=== PATIENT | male | born 1945 | race Caucasian/White ===

== ENCOUNTER 2025-07-17 07:01 | Outpatient (OUT) | payer MEDICARE, SELFPAY ==
--- OUTSIDE RECORDS SUMMARY | 2025-07-16 09:30 | XMS_ITS ---
Author Organization [facility] in [place] Address [address] [place] [address] Care Team Providers Care Supervisor Slitting And Shipping Name Role Phone Burak Rosenthal Primary Care Provider Allergies No Known Allergies Results Component Value Reference Range Notes HEMOGLOBIN A1C - IN OFFICE Reviewed date:07/16/2025 02:32:13 PM Interpretation:7.7 Performing Lab: Notes/Report: 7.7 HEMOGLOBIN A1C - IN OFFICE 7.7 4.4 - 6.4 REASON FOR VISIT swollen right leg, MWV Medications Medication SIG (Take, Route, Frequency, Duration) Notes Start Date End Date Status Multivitamin otcActiveTamsulosin HCl 0.4 MG1 capsule Orally Once a dayActiveMounjaro 10 MG/0.5ML 10 mg Subcutaneous qweek 12 pens 5ActivemetFORMIN HCl 1000 MG1 tablet with a meal Orally bidActive Jardiance 25 MG1 tablet Orally Once a dayActiveAspirin 81 MG1 tablet Orally Once a dayActive Social History Tobacco Use: Social History Observation Description Date Details (start date - stop date) Never Smoker NA - NA Tobacco Use/Smoking Question Answer Notes Patient is a nonsmoker Problems Problem Type SNOMED Code ICD Code Onset Dates Problem Status W/U Status Risk Notes Problem Obesity due to exces s calories (068048658) Other obesity due to excess calories (E66.09) ActiveconfirmedProblemBody mass index 30.00 to 34.99 (904466405612098)Body mass index [BMI] 34.0-34.9, adult (Z68.34)ActiveconfirmedProblemObese class I (finding) ([id number])Obesity, class 1 (E66.811)Activeconfirmed Vital Signs Weight 257.6 lbs 07/16/2025 Height 72 in 07/16/2025 Blood pressure systolic 132 mm Hg 07/16/20 25 Blood pressure diastolic 78 mm Hg 025 Heart Rate 76 /min 07/16/2025 Respiratory Rate 16 /min 07/16/2025 BMI 34.93 kg/m2 07/16/2025 Oximetry 91 % 07/16/2025 Procedures Procedure Date Ordered Date Performed Result Body Sit e EKG w Interp & Report - performed 07/16/2025 N/AVenous duplex scan of lower extremities - right for DVT07/16/2025N/A Encounters Encounter Location Date Provider Diagnosis [facility] [address] [place] [address] 07/16/2025 Burak Rosenthal Localized edema R60. 0 ; Essential (primary) hypertension I10 ; Type 2 diabetes mellitus with diabetic polyneuropathy E11.42 ; Other obesity due to excess calories E66.09 ; Body mass index [BMI] 34.0-34.9, adult Z68.34 ; Obesity, class 1 E66.811 ; Encounter for Medicare annual wellness exam Z00.00 ; Encounter for screening for malignant neoplasm of prostate Z12.5 ; Type 2 diabetes mellitus with diabetic chronic kidney disease E11.22 ; Chronic kidney disease, stage 2 (mild) N18.2 ; Nocturia R35.1 ; Benign prostatic hyperplasia with lower urinary tract symptoms N40.1 and Other constipation K59.09 Assessments Encounter Date Diagnosis (ICD Code) Assessment Notes Treatment Notes Treatment Clinical Notes Section Notes 07/16/2025 Localized edema (ICD-10 - R60.0) elevate leg STAT R LE venous doppler - set up tomorrow at [facility] - will need eliquis if positive 07/16/2025Essential (primary) hypertension (ICD-10 - I10) EKG today +sinus arrythmia but not A fib diet/exercise labs bp check daily goal <130/80 rec TEJAL/ARB 07/16/2025Type 2 diabetes mellitus with diabetic polyneuropathy (ICD-10 - E11.42) a1c today uncontrolled eye exam yearly - dilated foot exam daily diet/exercise rtc 3 months no change in meds per pt - rtc 3 months - I rec increasing mounjaro or adding actos - no change mounjaro now as he just got a supply 07/16/2025Other obesity due to excess calories (ICD-10 - E66.09)diet/exercise 07/16/2025ody mass index [BMI] 34.0-34.9, adult (ICD-10 - Z68.34)07/16/2025 Obesity, class 1 (ICD-10 - E66.811)07/16/2025Encounter for Medicare annual wellness exam (ICD-10 - Z00.00) diet/exercise rec rsv vaccine rec shingrix rec flu shot yearly rec dtap q10 years rec colonoscopy q10 years - UTD eye and dental exams yearly labs rtc 1 year 07/16/2025Encounter for screening for malignant neoplasm of prostate (ICD-10 - Z12.5)07/16/2025Type 2 diabetes mellitus with diabetic chronic kidney disease (ICD-10 - E11.22) uncontrolled see above 07/16/2025hronic kidney disease, stage 2 (mild) (ICD-10 - N18.2) continue jardiance monitor bmp and urine microalbumin yearly stable 07/16/2025Nocturia (ICD-10 - R35.1)continue kylzdu4807/16/2025enign prostatic hyperplasia with lower urinary tract symptoms (ICD-10 - N40.1) psa yearly continue flomax stable 07/16/2025Other constipation (ICD-10 - K59.09) diet fiber continue miralax prn - use daily if worsens Plan Of Treatment Medication Medication Name Sig Start Date Stop Date Notes Tamsulosin HCl 0.4 MG 1 capsule Orally Once a da y Mounjaro 10 MG/0.5ML10 mg Subcutaneous qweek10/25/2024metFORMIN HCl 1000 MG1 tablet with a meal Orally bidJardiance 25 MG1 tablet Orally Once a dayTreatment Notes Assessment Notes Localized edema elevate leg STAT R LE venous doppler - set up tomorrow at [facility] - will need eliquis if positive Essential (primary) hypertension EKG today +sinus arrythmia but not A fib diet/exercise labs bp check daily goal <130/80 rec TEJAL/ARB Type 2 diabetes mellitus wit h diabetic polyneuropathy a1c today uncontrolled eye exam yearly - dilated foot exam daily diet/exercise rtc 3 months no change in meds per pt - rtc 3 months - I rec increasing mounjaro or adding actos - no change mounjaro now as he just got a supply Other obesity due to excess calories t/exercise Encounter for Medicare annual wellness e xam diet/exercise rec rsv vaccine rec shingrix rec flu shot yearly rec dtap q10 years rec colonoscopy q10 years - UTD eye and dental exams yearly labs rtc 1 year Type 2 diabetes mellitus wit h diabetic chronic kidney disease uncontrolled see above Chronic kidney disease, stage 2 (mild) continue jardiance monitor bmp and urine microalbumin yearly stable Nocturia continue flomax Benign prostatic hyperplasia with lower urinary tract symptoms psa yearly continue flomax stable Other constipation diet fiber continue miralax prn - use daily if worsens Pending Test Test Name Order Date LIPID PANEL (CHOL/TRIG/HDL/LDL) 07/16/20 25 EKG w Interp & Report - performed 2024 PSA, TOTAL 07/16/2025 Venous duplex scan of lower extremities - right for DVT 07/16/2025 CMP (COMP MET GAINES) w/eGFR CKD-EPI 2024 CBC WITH DIFF 07/16/2025 MICROALBUMIN w CREAT RATIO 07/16/2025 Next Appt Details Follow Up: 3 Months, Reason: Provider Name:Burak herrera, 07/23/2025 08:45:00 AM, [address] [place], [address], Progress Notes * José Miguel MCLEAN ADOB:[birth year] (79 yo M)Acc No.[id number]:07/16/2025 Established Patient: Shannon José Miguel MAGAÑA :?Burak Rosenthal DODOB:1945???Age:79 Y ???Sex:MaleDate:07/16/2025Phone:[phone]:[address] [id number] In:01:55 PM ESTCheck Out:03:37 PM EST Subjective: * Chief Complaints: * S wollen right legMWV * HPI: ???General:?patient presents today for a swollen right leg.he states it has been going on for about a week now.he states it goes down at night when he sleeps.-RM BS 130-140 normally at home - higher the last 2 days not seeing endo no f/c/URI s/s mild cough - chronic tolerating all meds no GERD +constipation - uses maalox prn - helps no blood/black stools no dysuria/hematuria +nocturia +worse R LE edema x 1 week 3+ on R normally his LE edema improves in am but not the R in the last week no CP/SOB/dizzy/palp +SOBOBA +PVD changes b/l LE +PND pn vaccine in past per pt never had rsv or shingrix no recent LE trauma or falls not checking BP at home 05/2024 labs reviewed - K 5.9, Cr 0.99, GFR 74, A1c 7.8, PSA 2.84, Hb 13.0, TSH normal, urine microalbumin elevated, TC 185, TG 122, HDL 42, LDL 119, B12 normal - - - - - - - - 06/17/23 labs reviewed - K 6.5, Cr 0.96, GFR 76, B12/folate normal, cbc/TSH normal, urine microalbumin high but ratio normal 06/30/23 K 4.4. ???Medicare Annual Wellness Visit:?Type of Visit:?Subsequent Annual Wellness Visit (SAWV). ?Visual Acuity:?N/A.?Other Providers of Care:?Care Team reviewed with patient:?Yes, and updates made in [place] of Care ?Physical Activity:?Do you exercise regularly??No ?Nutrition/Diet:?On a typical day, how many servings of fruitsand vegetables do you consume??2 ?In a typical week, how many servings of friedor high fat (such as cheese, fatty meat) do you consume??2 ?In a typical week, how many servings of high fiber or whole grain foods do you consume??7 ?Seat Belt:?Do you always use your seat belt in your car? Yes ?Are you having difficulties driving your car? No ?Can you get to places out of walking distancewithout help??Yes ?Dental:?How would you describe the condition of your mouth and teeth, including any false teeth or dentures??Very good ?Medication List Follow-Up:?During the past four weeks, how much bodily pain do you have??No pain ?Do you have a current opioid prescription? No ?Have you ever used illegal drugs or marijuana No ?Self Assessment of Health:?How would you rate your overall health the past four weeks??Excellent ?How confident are you that you can control and manage most of your health problems??Very confident ?How have things been going for you during thepast four weeks??Very well; could hardly be better ?During the past four weeks, was someone available to help you if you needed and wanted help??Yes, as much as I wanted (Example: if you felt nervous, lonely, or blue; got sick and had to stay in bed; needed someone to talk to; help with daily chores; or needed help just taking care of yourself) ?Do you have any sexual problems??No ?Do you have any troubles eating well??No ?Do you have any problems with tiredness or fatigue??No ?Have you noticed any hearing difficulties? Yes ?Do you have trouble with incontinence (leaking of urine)??Yes ?Sun Exposure:?Do you protect yourself from over exposure tothe sun when outdoors??Yes ?Mental Wellness:?During the past four weeks, how much have youbeen bothered by emotional problems such as feeling anxious, depressed, irritable, sad, or downhearted and blue??Not at all ?During the past four weeks, has your physicaland emotional health limited your social activities with family, friends, neighbors, or groups? Not at all ?Functional Ability and Safety Screening:?Do you need assistance with any of the following? Select all that apply.?None ?Does your home have rugs in the hallway, lackgrab bars in the bathroom, lack handrails on the stairs or have poor lighting??No ?Do you feel unsteady and/or dizzy when standing or walking??No ?Do you have smoke detectors in your home and routinely change the batteries??Yes ?Do you have a fire extinguisher and know how to use it properly??Yes ?Do you have any problems with your living situation, food, transportation, utilities, or safety??No ?Cognitive Screening:?Have you experienced any memory issues or problems with thinking??Yes ?Have your family members, friends, caretakers, or others raised any concerns??Yes ?Do you get confused or easily distracted morethan you used to??Yes ?Has your ability to concentrate seem to have declined recently??No ?Overall Cognitive Status?Intact ?End of Life Planning:?Do you have a living will??No ?Do you have a Durable Power of Labelling Machine Operator??No ?Would you like to discuss this topic today? No ?SDOH?Agree to complete Social Determinants of Health questionnaire?Yes ?Within the past 12 months, did you worry thatyour food would run out before you got money to buy more??No ?Within the past 12 months, did the food you bought just not last and you didn't have money to buy more??No ?Within the past 12 months, have you ever stayed: outside, in a car, in a a tent, in an overnight usp, or temporarily in someone else's home? No ?Are you worried about losing your housing? No ?Within the past 12 months, have you been ableto get utilities (heat, electricity) when it was really needed??No ?Within the past 12 months, has a lack of transportation kept you from medical appointments or from doing things needed for daily living??No ?Do you feel physically or emotionally unsafe where you currently live?? No ?Would you like help with any of these needs that you have identified?? No * ROS: ???General/Constitutional:?Significant change in weight?denies.?Exercise Intolerance?denies.?Night sweats?denies.?Fever?denies.?Eyes:?Dry eyes?Denies.?Vision changes?denies.?ENMT:?Sore Throat?denies.?Nose Bleeds?denies.?Difficulty hearing?admits.?Ear pain?denies.?Nose/sinus problems?admits.?Snoring?denies.?Bleeding gums?denies.?Dry mouth?denies.?Mouth ulcers denies.?Oral abnormalities?denies.?Teeth problems?denies.?Cardiovascular:?Shortness of Breath w/Walking?denies.?Shortness of Breath w/lying flat?denies.?Arm pain on exertion?denies.?Chest pain?denies. Heart murmur?denies.?Palpitations?denies.?Respiratory:?Coughing up blood?denies.?Cough?admits.?Shortness of breath?denies.?Wheezing?denies.?Gastrointestinal:?Change in appetite?denies.?Vomiting blood?denies.?Abdominal pain?denies.?Constipation?admits.?Diarrhea?denies.?Vomiting?denies.?Genitourinary:?Dysuria/Increased Frequency?denies.?Hematuria?den ies.?Incontinence?denies.?Difficulty urinating?,admits.?Musculoskeletal:?Swelling in the extremities?admits.?Arthralgias/jointpain?Denies.?Back pain?denies.?Weakness of muscles?denies.?Muscle aches?denies.?Skin:?Jaundice?Denies.?Mole(s)?denies.?Rash?denies.?Neurologic:?Dizziness?denies.?Loss of consciousness?denies. Numbness?admits .?Weakness?denies.?Headache?denies.?Seizures?denies.?Psychiatric:?Alcohol abuse?denies.?Feeling safe in relationship&#16 0;denies.?Depression?denies.?Anxiety?denies.?Sleep Disturbances?denies.?Endocrine:?Fatigue?denies.?Hematologic/Lymphatic:?Swollen Glands?denies.?Bruising?denies.?Allergy/Immunology:?Runny nose?denies.?Sinus pressure?denies.?Frequent sneezing?denies.?Hives?denies.?Itching?denies.? * Active Problem List I10 Essential (primary) hypertension Modified On:06/27/2023 Status:jafqexrdmH73.1Benign prostatic hyperplasia with lower urinary tract symptoms Modified On:06/27/2023 Status:mqqebyrdrU39.46Mixed incontinence Modified On:02/21/2023 Status:cnmrbutubQ47.42Type 2 diabetes mellitus with diabetic polyneuropathy Modified On:06/27/2023 Status:glmxpsqfeL55.65Type 2 diabetes mellitus with hyperglycemia Modified On:06/27/2023 Status:zgdeofqwsS65.36Body mass index [BMI] 36.0-36.9, adult Modified On:02/21/2023 Status:gjwtqpkubB75.01Morbid (severe) obesity due to excess calories Modified On:07/04/2023 Status:fktswnakeY54.9Gastro-esophageal reflux disease without esophagitis Modified On:02/21/2023 Status:ugphlqeinB38.00Constipation, unspecified Modified On:02/21/2023 Status:pzhahljhhZ77.9Peripheral vascular disease, unspecified Modified On:06/27/2023 Status:qlsvpwsppZ74.0Somnolence Modified On:06/27/2023 Status:albzrbpniH12.22Type 2 diabetes mellitus with diabetic chronic kidney disease Modified On:07/04/2023 Status:ttyxuohpuV69.2Chronic kidney disease, stage 2 (mild) Modified On:07/04/2023U Status:oiisyhnwbJ90.2Mixed hyperlipidemia Modified On:06/27/2023 Status:kewolpviqN69.35Body mass index [BMI] 35.0-35.9, adult Modified On:07/04/2023 Status:dpzbfgalfN34.29Type 2 diabetes mellitus with other diabetic kidney complication Modified On:07/04/2023U Status:eajrwbvtcC95.09Other obesity due to excess calories Modified On:07/16/2025U Status:xgxeeeiudB02.34Body mass index [BMI] 34.0-34.9, adult Modified On:07/16/2025 Status:irkepadzpF96.811Obesity, class 1 Modified On:07/16/2025 Status:confirmed * Medical History: * Surgical History: c olonoscopy ~2009 per pt - normal colonoscopy - 2022 - normal * Hospitalization/Major Diagno stic Procedure: N o Hospitalization History. * Family History: F ather: , heart attack. M other: , congestive heart failure. B rother(s): , stroke/dm/htn. S ister(s): alive, htn/ca. * Social History: ???Tobacco Use:?Tobacco Use/Smoking?Patient is a?nonsmoker * Medications: T akingAspirin 81 MG Tablet Delayed Release 1 tablet Orally Once a day Jardiance(Empagliflozin) 25 MG Tablet 1 tablet Orally Once a day metFORMIN HCl 1000 MG Tablet 1 tablet with a meal Orally bid Mounjaro(Tirzepatide) 10 MG/0.5ML Solution Auto-injector 10 mg Subcutaneous qweek 12 pensMultivitamin , Notes to Pharmacist: otcTamsulosin HCl 0.4 MG Capsule 1 capsule Orally Once a day Medication List reviewed and reconciled with the patientTaking Aspirin 81 MG Tablet Delayed Release 1 tablet Orally Once a day Taking Jardiance(Empagliflozin) 25 MG Tablet 1 tablet Orally Once a day Taking metFORMIN HCl 1000 MG Tablet 1 tablet with a meal Orally bid Taking Mounjaro(Tirzepatide) 10 MG/0.5ML Solution Auto-injector 10 mg Subcutaneous qweek 12 pensTaking Multivitamin , Notes to Pharmacist: otcTaking Tamsulosin HCl 0.4 MG Capsule 1 capsule Orally Once a day Medication List reviewed and reconciled with the patient * Allergies: N .K.D.A.no[Allergies Verified] Objective: * Vitals: W t:257.6lbs, Ht: 72 in, BP:132/78mm Hg, HR:76/min, RR:16/min, BMI:34.93Index, Oxygen sat %:91%, Wt-k.85 kg. * Examination: ???General Examination: ?GENERAL APPEARANCE:?healthy Appearing , well nourished , well developed Level of distress: NAD,?+limp, obese.?ENMT:?EACs clear, TMs clear, no hearing loss, no lesions on external ears, nares patent, nasal passages clear, no sinus tenderness, no nasal discharge, no mouth or lip ulcers, no bleeding gums, moist mucous membranes, no erythema, no exudates.?HEAD:?normocephalic, atraumatic.?EYES:?non-injected, no discharge, no pallor, PERRLA , EOMI,?sclera non- icteric, peripheral vision grossly intact, acuity grossly intact.?LUNGS:?no dyspnea, breath sounds normal , good air movement, CTA except as noted, no wheezing, no rales/crackles, no rhonchi.?CARDIO:?not displaced, +irreg irreg.?ABDOMEN:?normal bowel sounds , soft, non tender, not distended, no guarding, no rebound tenderness, no masses, no CVA tenderness, liver non tender, no hepatomegaly.?BACK:?normal curvature.?MUSCULOSKELETAL:?normal motor strength, normal tone, normal movement of all extremities, +OA changes b/l hands, no contractures, no malalignment, no tenderness.?SKIN:?no rash, no lesions, no ulcer, no abnormal nevi, no induration, no nodules, good turgor, no jaundice.?EXTREMITIES:?1+ L LE edema with PVD skin changes - rubror,etc; +3+ R LE edema with mild warmth and PVD skin changes with rubror.?NEUROLOGIC:?cranial nerves grossly intact, +limited sensation b/l LE, no tremor.?PSYCH:?judgement and insight good, active and alert, normal mood, normal affect.?NECK/THYROID:?Neck supple, trachea midline, no masses, FROM, no cervical LAD, no enlargement, non-tender, no nodules.? Assessment: * Assessment: 1.?Localized edema - R60.0 (Primary)???2.?Essential (primary) hypertension- I10???3.?Type 2 diabetes mellitus with diabetic polyneuropathy - E11.42?& #160;?4.?Other obesity due to excess calories - E66.09???5.?Body massindex [BMI] 34.0-34.9, adult - Z68.34???6.?Obesity, class 1 - E66.811? 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 Plan: * Treatment: ?Procedure: Venous duplex scan of lower extremities - right for DVT* Burak Rosenthal 07/16/2025 02:49:25 PM EST >stat Notes: elevate leg STAT R LE venous doppler - set up tomorrow at [facility] - will need eliquis if positive ??2.?Essential (primary) hypertension?LAB: CMP (COMP MET GAINES) w/eGFR CKD-EPI ?LAB: CBC WITH DIFF ?LAB: MICROALBUMIN w CREAT RATIO ?Procedure: EKG w Interp & Report - performed Notes: EKG today +sinus arrythmia but not A fib diet/exercise labs bp check daily goal <130/80 rec TEJAL/ARB??3.?Type 2 diabetes mellitus with diabetic polyneuropathy? Continue Jardiance Tablet, 25 MG, 1 tablet, Orally, Once a day;?Continue metFORMIN HCl Tablet,1000 MG, 1 tablet with a meal, Orally, bid;?Continue Mounjaro Solution Auto-injector, 10 MG/0.5ML, 10 mg, Subcutaneous, qweek 12 pens.?LAB: LIPID PANEL (CHOL/TRIG/HDL/LDL) ?LAB: HEMOGLOBIN A1C - IN OFFICE (Collection Date & Time - 07/16/2025) Notes: a1c today uncontrolled eye exam yearly - dilated foot exam daily diet/exercise rtc 3 months no change in meds per pt - rtc 3 months - I rec increasing mounjaro or adding actos - no change mounjaro now as he just got a supply ??4.?Other obesity due to excess calories? Notes: diet/exercise ??5.?Encounter for Medicare annual wellness exam? Notes: diet/exercise rec rsv vaccine rec shingrix rec flu shot yearly rec dtap q10 years rec colonoscopy q10 years - UTD eye and dental exams yearly labs rtc 1 year ??6.?Encounter for screening for malignant neoplasm of prostate?LAB: PSA, TOTAL7.?Type 2 diabetes mellitus with diabetic chronic kidney disease? Notes: uncontrolled see above ??8.?Chronic kidney disease, stage 2 (mild)? Notes: continue jardiance monitor bmp and urine microalbumin yearly stable ??9.?Nocturia? Notes: continue flomax ??10.?Benign prostatic hyperplasia with lower urinary tract symptoms? Continue Tamsulosin HCl Capsule, 0.4 MG, 1 capsule, Orally, Once a day.?? Notes: psa yearly continue flomax stable ??11.?Other constipation? Notes: diet fiber continue miralax prn - use daily if worsens ?? * Labs: * L ab: HEMOGLOBIN A1C - IN OFFICE (Collection Date & Time - 07/16/2025) 7 .7 ?ValueReference Range?HEMOGLOBIN A1C - IN OFFICE7.74.4 - 6.4 * Procedure Codes: 3 078F DIAST BP < 80 MM [id number] SYST BP GE 130 - 139MM [id number] EKG, WINTERP., Modifiers: 25 G0439 ANNUAL WELLNESS, [id number] HEMOGLOBIN; GLYCATED, Modifiers: QW * Preventive Medicine: ??Screenings/Counseling:?FALL RISK SCREENING?Fall Risk Assessment:?No falls in the past year ?Are you afraid of falling??No * Follow Up: 3 Months * * ign off status: CompletedVisit Status:?CHK (Check Out) true * Provider: Maryan Rosenthal DO Date: 09/16/2024 Generated for Printing/[email or web address] on:?07/17/2025 07:12 AM EST History and Physical Notes * HPI (History of Present Illness) CategorySub-CategoryDetailNotesCategory NotesMedicare Annual Wellness VisitType of Visit:Subsequent Annual Wellness Visit (SAWV)Cognitive Screening:Have you experienced any memory issues or problems with thinking?: YesHave your family members, friends, caretakers, or others raised any concerns?: YesDo you get confused or easily distracted more than you used to?: YesHas your ability to concentrate seem to have declined recently?: NoOverall Cognitive Status: Intact Self Assessment of Health:How would you rate your overall health the past four weeks?: ExcellentHow confident are you that you can control and manage most of your health problems?: Very confidentHow have things been going for you during the past four weeks?: Very well; could hardly be betterDuring the past four weeks, was someone available to help you if you needed and wanted help?: Yes, as much as I wanted(Example: if you felt nervous, lonely, or blue; got sick and had to stay in bed; needed someone to talk to; help with daily chores; or needed help just taking care of yourself)Do you have any sexual problems?: NoDo you have any troubles eating well?: NoDo you have any problems with tiredness or fatigue?: NoHave you noticed any hearing difficulties?: YesDo you have trouble with incontinence (leaking of urine)?: YesPhysical Activity:Do you exercise regularly?: NoFunctional Ability and Safety Screening:Do you need assistance with any of the following? Select all that apply.: NoneDoes your home have rugs in the hallway, lack grab bars in the bathroom, lack handrails on the stairs or have poor lighting?: NoDo you feel unsteady and/or dizzy when standing or walking?: NoDo you have smoke detectors in your home and routinely change the batteries?: YesDo you have a fire extinguisher and know how to use it properly?: YesDo you have any problems with your living situation, food, transportation, utilities, or safety?: NoVisual Acuity:N/ANutrition/Diet:On a typical day, how many servings of fruits and vegetables do you consume?: 2In a typical week, how many servings of fried or high fat (such as cheese, fatty meat) do you consume?: 2In a typical week, how many servings of high fiber or whole grain foods do you consume?: 7Seat Belt:Do you always use your seat belt in your car?: YesAre you having difficulties driving your car?: NoCan you get to places out of walking distance without help?: YesDental:How would you describe the condition of your mouth and teeth, including any false teeth or dentures?: Very goodMedication List Follow-Up:During the past four weeks, how much bodily pain do you have?: No painDo you have a current opioid prescription?: NoHave you ever used illegal drugs or marijuana: NoMental Wellness:During the past four weeks, how much have you been bothered by emotional problems such as feeling anxious, depressed, irritable, sad, or downhearted and blue?: Not at allDuring the past four weeks, has your physical and emotional health limited your social activities with family, friends, neighbors, or groups?: Not at allSun Exposure:Do you protect yourself from over exposure to the sun when outdoors?: YesEnd of Life Planning: Do you have a living will?: NoDo you have a Durable Power of Labelling Machine Operator?: NoWould you like to discuss this topic today?: NoOther Providers of Care:Care Team reviewed with patient:: Yes, and updates made in [facility] to complete Social Determinants of Health questionnaire: Yes? Within the past 12 months, did you worry that your food would run out before you got money to buy more?: No? Within the past 12 months, did the food you bought just not last and you didn't have money to buy more?: No? Within the past 12 months, have you ever stayed: outside, in a car, in a a tent, in anovernight usp, or temporarily in someone else's home?: No? Are you worried about losing your housing?: No? Within the past 12 months, have you been able to get utilities (heat, electricity) when it was really needed?: No? Within the past 12 months, has a lack of transportation kept you from medical appointments or from doing things needed for daily living?: No? Do you feel physically or emotionally unsafe where you currently live?: No? Would you like help with any of these needs that you have identified?: No Examination CategorySub-CategoryDetailNotesCategory NotesGeneral ExaminationGENERAL APPEARANCE:healthy Appearing , well nourished , well developed Level of distress: NAD, +limp, obeseEYES:non-injected, no discharge, no pallor, PERRLA , EOMI, sclera non-icteric, peripheral vision grosslyintact, acuity grossly intact CARDIO:not displaced, +irreg irregLUNGS:no dyspnea, breath sounds normal , good air movement, CTA except as noted, no wheezing, no rales/crackles, no rhonchi ABDOMEN:normal bowel sounds , soft, non tender, not distended, no guarding, no rebound tenderness, no masses, no CVA tenderness, liver non tender, no hepatomegalyNEUROLOGIC:cranial nerves grossly intact, +limited sensation b/l LE, no tremorSKIN:no rash, no lesions, no ulcer, no abnormal nevi, no induration, no nodules, good turgor, no jaundiceEXTREMITIES:1+ L LE edema with PVD skin changes - rubror, etc; +3+ R LE edema with mild warmth and PVD skin changes with rubrorBACK:normal curvatureMUSCULOSKELETAL:normal motor strength, normal tone, normal movement of all extremities, +OA changes b/l hands, no contractures, no malalignment, no tendernessPSYCH:judgement and insight good, active and alert, normal mood, normal affectENMT:EACs clear, TMs clear, no hearing loss, no lesions on external ears, nares patent, nasal passages clear, no sinus tenderness, no nasal discharge, no mouth or lip ulcers, no bleeding gums, moist mucous membranes, no erythema, no exudatesHEAD:normocephalic, atraumatic NECK/THYROID:Neck supple, trachea midline, no masses, FROM, no cervical LAD, no enlargement, non-tender, no nodules
--- OUTSIDE RECORDS SUMMARY | 2025-07-17 07:12 | XMS_ITS | Clinical Summary ---
Author Organization [facility] Address [address] [place] [address] Care Team Providers Care District Leader Name Role Phone Burak Rosenthal MD Unavailable [phone] Allergies No known active allergies Medications MedicationSigDispense QuantityRefillsLast FilledStart DateEnd DateStatus tamsulosin (Flomax) 0.4 MG 24 hr capsule Take 0.4 mg by mouth in the morning.04/06/2023ctive metFORMIN (Glucophage) 1000 MG tablet Take 1,000 mg by mouth04/06/2023ctive Jardiance 25 MG Take 25 mg by mouth in the morning.06/16/2023ctive Mounjaro 5 MG/0.5ML solution pen-injector 06/01/2023ctive OneTouch Verio test strip USE 1 STRIP DAILY06/28/2023ctive cephalexin (Keflex) 500 MG capsule Take 500 mg by mouth in the morning and 500 mg before bedtime.07/02/2023ctive Active Problems No known active problems Family History Medical HistoryRelationNameCommentsDiabetesFatherHeart diseaseFatherDiabetes MotherRelationNameStatusCommentsFatherMother Social History Tobacco UseTypesPacks/DayYears UsedDateSmoking Tobacco: NeverSmokeless Tobacco: NeverAlcohol UseStandard Drinks/WeekCommentsNot Currently0 (1 standard drink = 0.6 oz pure alcohol)Sex and Gender InformationValueDate RecordedSex Assigned at BirthNot on fileLegal InjAgio9610/14/2022 8:25 PM EDTGender IdentityNot on file Sexual OrientationNot on file Last Filed Vital Signs Vital SignReadingTime TakenCommentsBlood Pressure--Pulse--Temperature-- Respiratory Rate--Oxygen Saturation--Inhaled Oxygen Concentration--Jfkwys069 kg (252 lb)07/22/2023 8:38 AM VBFHpuquc240.9 cm (6')07/22/2023 8:38 AM ESTBody Mass Index34.18109/22/2022 8:38 AM EST Plan of Treatment Not on file Insurance * Guarantor: José Miguel Conde AAccount TypeRelation to PatientDate of BirthPhone Billing AddressPersonal/JozrmiGmjy[birth year][address] [address] Care Teams Team MemberRelationshipSpecialtyStart DateEnd Burak Rosenthal MD [address] [place] [address] [address] [place] [address] Referring PhysicianOrthopaedic Iiermpn60/8/23
--- OUTSIDE RECORDS SUMMARY | 2025-07-17 07:12 | XMS_ITS | Clinical Summary ---
Author Organization [facility] tem Address [id number] [address] [place] [address] Care Team Providers Care Farmworker [employer] Name Role Phone RosenthalBurak carrasco DO Primary Care Provider Allergies No known active allergies Medications MedicationSigDispense QuantityRefillsLast FilledStart DateEnd DateStatus empagliflozin (JARDIANCE) 10 mg tablet tablet Take 1 tablet (10 mg total) by mouth in the morning.Active aspirin 81 mg Take 1 tablet (81 mg total) by mouth in the morning.Active tamsulosin (FLOMAX) 0.4 mg capsule Take 1 capsule (0.4 mg total) by mouth in the morning.Active metFORMIN (GLUCOPHAGE) 1000 mg tablet Take 1 tablet (1,000 mg total) by mouth in the morning and 1 tablet (1,000 mg total) in the evening. Take with meals.Active vrtotfzn-nmbt-QB-calcium &mins (THERAGRAN-M) 9 mg iron-400 mcg tablet Take 1 tablet by mouth in the morning.Active albuterol (PROVENTIL HFA;VENTOLIN HFA) 90 mcg/actuation inhaler Indications:COVID-19Inhale 2 puffs every 4 (four) hours as needed for wheezing. 18 g ctive MOUNJARO 5 mg/0.5 mL pen injector taqszgujxb85/01/2023Active Active Problems ProblemNoted DateDiagnosed DateChest pain, unspecified type3Pneumonia 1Diabetes mellitusHypertensionBPH (benign prostatic hyperplasia)DVT (deep venous thrombosis)Chest painFatigue Family History Medical HistoryRelationNameCommentsStrokeBrotherHeart attackFatherParkinsonism MotherAtrial fibrillationSister 1DiabetesSister 2CancerSister 3RelationName StatusCommentsBrotherDeceasedFatherDeceasedMotherDeceasedSister 1Sister 2Sister 3DeceasedSister 4Deceased Social History Tobacco UseTypesPacks/DayYears UsedDateSmoking Tobacco: Some DaysCigarsSmokeless Tobacco: Never Tobacco Cessation:Ready to Q uit: Not Asked; Counseling Given: Not Answered Alcohol UseStandard Drinks/WeekCommentsNot Currently0 (1 standard drink = 0.6 oz pure alcohol)SELDOMChildcareAnswerDate LsvoyrjoKnpmeyuhuLtikfsu49/12/2019 EmploymentAnswerDate WbbmhnnpUzvxkoqsuqFlsbfbd97/12/2019Purpose - LifeAnswerDate RecordedPurpose and direction in ihvuKqjoglj38/11/2021ex and Gender Information ValueDate RecordedSex Assigned at BirthNot on fileLegal KnfIntf5603/07/2015 11:36 AM EDTGender IdentityNot on fileSexual OrientationNot on file Last Filed Vital Signs Vital SignReadingTime TakenCommentsBlood Vevylomb648/5805 9:04 AM EDT Vrbld459212/28/2023 9:04 AM NDYShbbczbceth73.3 ??C (97.4 ??F)11/10/2023 6:21 AM EDTRespiratory Jxzk545011/10/2023 8:50 AM EDTOxygen Rawglsfepo95%11/10/2023 8:50 AM EDTInhaled Oxygen Concentration--Qdipag487.5 kg (265 lb 9.6 oz)12/28/2023 9:04 AM TVADjznsa653.9 cm (6')12/28/2023 9:04 AM EDTBody Mass Index36.02 12/28/2023 9:04 AM EDT Plan of Treatment Health MaintenanceDue DateLast DoneCommentsDepression Yiylukxma01/21/1960 DTaP,Tdap and Td Vaccines (1 - Tdap)1966Zoster (Shingles) Vaccine (1 of 2) 1997Abdominal Aortic Aneurysm (AAA) Taxzrs48/21/2013Fall Risk Screening 2012RSV ( or age 60+ yrs) (1 - 1-dose 75+ series)2022Tobacco Getquvfjl93/4COVID-19 Vaccine (2024- season)2025 03/09/2022, 10/06/2021, 04/30/2021, Additional history existsInfluenza Vaccine /, 05/19/2022, 08/10/2019 Goals GoalPatient Goal TypeAssociated ProblemsRecent ProgressPatient-Stated?Author safe discharge to home Dominique Ambrose RN Note: Evaluation of progress towards goal: safe transition from hospital to home with family support. Medical Devices Not on file Insurance Advance Directives * Full Code (Latest Code Status on File) Date ActivatedDate InactivatedComments08/06/2022 4:44 AM08/06/2022 9:26 PM * Full Code Date ActivatedDate InactivatedComments12/10/2020 2:07 PM12/11/2020 5:02 PM Care Teams Team MemberRelationshipSpecialtyStart DateEnd Date Burak Rosenthal DO [address] [place] [address] PCP - GeneralFamily Medicine03/17/23
--- OUTSIDE RECORDS SUMMARY | 2025-07-17 07:12 | XMS_ITS | Patient Health Record ---
Author Organization [facility] in [place] Address [address] [place] [address] Care Team Providers Care Nursing Faculty Name Role Phone Rosenthal Burak Primary Care Provider Allergies No Known Allergies Results Component Value Reference Range Notes HEMOGLOBIN A1C - IN OFFICE Reviewed date:07/16/2025 02:32:13 PM Interpretation:7.7 Performing Lab: Notes/Report: 7.7 HEMOGLOBIN A1C - IN OFFICE 7.7 4.4 - 6.4 HEMOGLOBIN A1C - IN OFFICE Reviewed date:10/30/2024 01:26:10 PM Interpretation:7.7 Performing Lab: Notes/Report: 7.7HEMOGLOBIN A1C - IN OFFICE7.74.4 - 6.4 Reason For Referral No Information Medications Medication SIG (Take, Route, Frequency, Duration) Notes Start Date End Date Status Multivitamin otcActiveTamsulosin HCl 0.4 MG1 capsule Orally Once a dayActiveAspirin 81 MG1 tablet Orally Once a dayActiveMounjaro 10 MG/0.5ML 10 mg Subcutaneous qweek 12 pens 5ActivemetFORMIN HCl 1000 MG1 tablet with a meal Orally bidActive Jardiance 25 MG1 tablet Orally Once a dayActive Immunizations Vaccine Route Administration Date Status Comme nts Flu, Fluad (8357-7707) (14848) 65 yrs+, single-dose syringe IM Intramuscular 06/16/2023 Administered Social History Tobacco Use: Social History Observation Description Date Details (start date - stop date) Never Smoker NA - NA Tobacco Use/Smoking Question Answer Notes Patient is a nonsmoker Problems Problem Type SNOMED Code ICD Code Onset Dates Problem Status W/U Status Risk Notes Problem Essential hypertension (33435964 ) Essential (primary) hypertension (I10) ActiveconfirmedProblemPeripheral vascular disease (273267898)Peripheral vascular disease, unspecified (I73.9)ActiveconfirmedProblemGastro-esophageal reflux disease without esophagitis (244834638)Gastro-esophageal reflux disease without esophagitis (K21.9)ActiveconfirmedProblemDiabetic renal disease (445618251)Type 2 diabetes mellitus with diabetic chronic kidney disease (E11.22)Activeconfirmed ProblemDiabetic renal disease (204978794)Type 2 diabetes mellitus with other diabetic kidney complication (E11.29)ActiveconfirmedProblemPolyneuropathy due to type 2 diabetes mellitus (208932986)Type 2 diabetes mellitus with diabetic polyneuropathy (E11.42)ActiveconfirmedProblemHyperglycemia due to type 2 diabetes mellitus (427571394838294)Type 2 diabetes mellitus with hyperglycemia (E11.65)ActiveconfirmedProblemMorbid obesity (disorder) (120702104)Morbid (severe) obesity due to excess calories (E66.01)ActiveconfirmedProblemObesity due to excess calories (715319217)Other obesity due to excess calories (E66.09) ActiveconfirmedProblemMixed hyperlipidemia (267957585)Mixed hyperlipidemia (E78.2)ActiveconfirmedProblemConstipation (91446011)Constipation, unspecified (K59.00)ActiveconfirmedProblemChronic kidney disease stage 2 (023788613)Chronic kidney disease, stage 2 (mild) (N18.2)ActiveconfirmedProblemMixed incontinence (180638847)Mixed incontinence (N39.46)ActiveconfirmedProblemSomnolence (83302224)Somnolence (R40.0)ActiveconfirmedProblemLower urinary tract symptoms due to benign prostatic hypertrophy (81845554241470)Benign prostatic hyperplasia with lower urinary tract symptoms (N40.1)ActiveconfirmedProblemBody mass index 30.00 to 34.99 (488814375964889)Body mass index [BMI] 34.0-34.9, adult (Z68.34) ActiveconfirmedProblemObese class II (866991035881854)Body mass index [BMI] 35.0-35.9, adult (Z68.35)ActiveconfirmedProblemBody mass index 35.00 to 39.99 (696409813139463)Body mass index [BMI] 36.0-36.9, adult (Z68.36)Activeconfirmed ProblemObese class I (finding) (650158015383570)Obesity, class 1 (E66.811)Active confirmed Vital Signs Heart Rate 76 /min 07/16/2025 Respiratory Rate16 /min07/16/20253291Aemkkiry46 %07/16/2025lood pressure diastolic 78 mm Hg07/16/20251850Qdabym93 in07/16/2025lood pressure tgvwdneg875 mm Hg 07/16/20254702Gnylhu945.6 lbs109/16/2024BMI34.93 kg/m207/16/2025 Procedures Procedure Date Ordered Date Performed Result Body Sit e EKG w Interp & Report - performed 07/16/2025 N/AVenous duplex scan of lower extremities - right for DVT07/16/2025N/A Encounters Encounter Location Date Provider Diagnosis [facility] [address] [place] [address] 07/21/2024 Burak Rosenthal Encounter for Medica re annual wellness exam Z00.00 ; Morbid (severe) obesity due to excess calories E66.01 ; Body mass index [BMI] 36.0-36.9, adult Z68.36 ; Obesity, class 2 E66.812 ; Essential (primary) hypertension I10 ; Benign prostatic hyperplasia with lower urinary tract symptoms N40.1 ; Type 2 diabetes mellitus with diabetic polyneuropathy E11.42 ; Chronic kidney disease, stage 2 (mild) N18.2 ; Gastro-esophageal reflux disease without esophagitis K21.9 ; Type 2 diabetes mellitus with other diabetic kidney complication E11.29 ; Proteinuria, unspecified R80.9 ; Localized edema R60.0 and Impacted cerumen, left ear H61.22 [facility] [address] [place] [address] 10/18/2024 Burak Rosenthal Type 2 diabetes mellitus with diabetic polyneuropathy E11.42 ; Morbid (severe) obesity due to excess calories E66.01 ; Body mass index [BMI] 35.0-35.9, adult Z68.35 ; Impacted cerumen, left ear H61.22 ; Localized edema R60.0 and Benign prostatic hyperplasia with lower urinary tract symptoms N40.[address] [address] 01/01/2025 Burak Zaldivarring Body mass index [BMI ] 35.0-35.9, adult Z68.35 ; Morbid (severe) obesity due to excess calories E66.01 and Type 2 diabetes mellitus with diabetic polyneuropathy E11.[address] [address] 07/16/2025 Burak Rosenthal Localized edema R60. 0 [...] tract symptoms N40.1 and Other constipation K59.[address] [address] 10/25/2024 Burak Rosenthal Type 2 diabetes mellitus with diabetic polyneuropathy E11.[address] [address] 11/01/2024 Burak Rosenthal Assessments Encounter Date Diagnosis (ICD Code) Assessment Notes Treatment Notes Treatment Clinical Notes Section Notes 07/21/2024 Morbid (severe) obesity due to e xcess calories (ICD-10 - E66.01) diet/exercise due to HTN/DM [facility] (ICD-10 - Z00.00) rec colonoscopy in 2032 diet/exercise rec flu shot yearly rec rsv vaccine rec shingrix rec pn vaccine q5 years labs yearly diet/exercise eye and dental exams yearly rtc 1 year 10/18/2024Type 2 diabetes mellitus with diabetic polyneuropathy (ICD-10 - E11.42) uncontrolled a1c today elevated increase mounjaro rtc 3 months diet/exercise monitor bs daily eye exam yearly - dilated foot exam daily 10/18/2024Morbid (severe) obesity due to excess calories (ICD-10 - E66.01) diet/exercise due to DM - see above for tx 01/01/2025ody mass index [BMI] 35.0-35.9, adult (ICD-10 - Z68.35)07/16/2025 Essential (primary) hypertension (ICD-10 - I10) EKG today +sinus arrythmia but not A fib diet/exercise labs bp check daily goal <130/80 rec TEJAL/ARB 07/16/2025Localized edema (ICD-10 - R60.0) elevate leg STAT R LE venous doppler - set up tomorrow at [facility] - will need eliquis if positive 10/25/2024Type 2 diabetes mellitus with diabetic polyneuropathy (ICD-10 - E11.42)01/01/2025Morbid (severe) obesity due to excess calories (ICD-10 - E66.01)diet/ighzuyxg23/15/2025Type 2 diabetes mellitus with diabetic polyneuropathy (ICD-10 - E11.42) a1c today uncontrolled eye exam yearly - dilated foot exam daily diet/exercise rtc 3 months no change in meds per pt - rtc 3 months - I rec increasing mounjaro or adding actos - no change mounjaro now as he just got a supply 10/18/2024ody mass index [BMI] 35.0-35.9, adult (ICD-10 - Z68.35)07/21/2024ody mass index [BMI] 36.0-36.9, adult (ICD-10 - Z68.36)07/21/2024Obesity, class 2 (ICD-10 - E66.812)01/01/2025Type 2 diabetes mellitus with diabetic polyneuropathy (ICD-10 - E11.42) monitor bs diet/exercise rtc 3 months - A1c then monitor bmp and urine microalbumin yearly - will do in fall 2024 with routine labs uncontrolled - adjust meds after next a1c eye exam yearly - dilated foot exam daily 10/18/2024Impacted cerumen, left ear (ICD-10 - H61.22) debrox rtc removal if wishes 07/16/2025Other obesity due to excess calories (ICD-10 - E66.09)diet/exercise 07/16/2025ody mass index [BMI] 34.0-34.9, adult (ICD-10 - Z68.34)10/18/2024 Localized edema (ICD-10 - R60.0) elevate legs NIA hose prob PVD 07/21/2024Essential (primary) hypertension (ICD-10 - I10) bp check daily goal <130/80 diet/exercise monitor bmp rec TEJAL/ARB if K ok at next draw - if not then rec bblocker 5Benign prostatic hyperplasia with lower urinary tract symptoms (ICD-10 - N40.1)psa qyear14Benign prostatic hyperplasia with lower urinary tract symptoms (ICD-10 - N40.1) psa yearly monitor for s/s of infection 07/16/2025Obesity, class 1 (ICD-10 - E66.811)07/16/2025Encounter for Medicare annual wellness exam (ICD-10 - Z00.00) diet/exercise rec rsv vaccine rec shingrix rec flu shot yearly rec dtap q10 years rec colonoscopy q10 years - UTD eye and dental exams yearly labs rtc 1 year 07/21/2024Type 2 diabetes mellitus with diabetic polyneuropathy (ICD-10 - E11.42) uncontrolled rtc 3 months - A1c then - d/w pt that I rec increasing mounjaro now but he wants to wait 3 months and do it then diet/exercise eye exam yearly - dilated foot exam daily bs check daily rec statin/TEJAL/ARB 07/21/2024hronic kidney disease, stage 2 (mild) (ICD-10 - N18.2) stable monitor bmp neph if worsens 07/16/2025Encounter for screening for malignant neoplasm of prostate (ICD-10 - Z12.5)07/16/2025Type 2 diabetes mellitus with diabetic chronic kidney disease (ICD-10 - E11.22) uncontrolled see above 07/21/2024Gastro-esophageal reflux disease without esophagitis (ICD-10 - K21.9) diet stable ppi if worsens 07/21/2024Type 2 diabetes mellitus with other diabetic kidney complication (ICD- 10 - E11.29) uncontrolled see above LDL goal <70 07/16/2025hronic kidney disease, stage 2 (mild) (ICD-10 - N18.2) continue jardiance monitor bmp and urine microalbumin yearly stable 07/16/2025Nocturia (ICD-10 - R35.1)continue ukuxzk6907/21/2024roteinuria, unspecified (ICD-10 - R80.9) monitor urine yearly rec TEJAL/ARB but we need to make sure K ok first bs control 07/21/2024Localized edema (ICD-10 - R60.0) elevate legs compression stockings ?lasix 07/16/2025enign prostatic hyperplasia with lower urinary tract symptoms (ICD-10 - N40.1) psa yearly continue flomax stable 07/16/2025Other constipation (ICD-10 - K59.09) diet fiber continue miralax prn - use daily if worsens 07/21/2024Impacted cerumen, left ear (ICD-10 - H61.22)debrox and rtc if wishes removal Plan Of Treatment Pending Test Test Name Order Date LIPID PANEL (CHOL/TRIG/HDL/LDL) 07/16/20 25 Cerumen Removal - performed 02/17/2023 Cerumen Removal - performed 06/16/2023 EKG w Interp & Report - performed 2024 PSA, TOTAL 07/16/2025 Venous duplex scan of lower extremities - right for DVT 07/16/2025 CMP (COMP MET GAINES) w/eGFR CKD-EPI 2024 CBC WITH DIFF 07/16/2025 MICROALBUMIN w CREAT RATIO 07/16/2025 Next Appt Details Provider Name:Burak herrera, 07/23/2025 08:45:00 AM, [address] [place], [address], Insurance Providers Payer Name Payer Address Payer Phone Subscriber Number Group Number Insured Name Patient Relationship to Insured Coverage Start Date Coverage End Date MMO ADVANTAGE CHOICE MEDICARE HMO [address] [place] [id number] José Miguel Conde Self - patient is the insured 5 Medical (General) History Medical History History ICD Code diabetes with neuropathy hypertensionBPHPVDDM-2 with CKD-2diabetic microalbuminuriaSurgical History Surgery Date(Month/Year) colonoscopy ~2009 per pt - normal colonoscopy - 2022 - normal
[2025-07-17 07:50] LABS: Hematocrit 45.7 % (42.0-54.0); Hemoglobin 14.6 g/dL (14.0-18.0); Mean Corpuscular HGB Conc 31.9 g/dL (29.9-35.2); Mean Corpuscular Hemoglobin 29.7 pg (25.9-34.0); Mean Corpuscular Volume 93.1 fL (80.0-94.0); Platelet Count 349 10^3/uL (150-450); Red Blood Count 4.91 10^6/uL (4.70-6.10); White Blood Count 10.8 10^3/uL (4.0-11.0)
[2025-07-17 08:09] LABS: Alanine Aminotransferase 23 U/L (16-63); Albumin Globulin Ratio 0.6; Albumin Level 2.9 g/dL (3.4-5.0); Alkaline Phosphatase 73 U/L (46-116); Anion Gap 11.4; Aspartate Amino Transferase 10 U/L (15-37); Blood Urea Nitrogen 20.0 mg/dL (7.0-18.0); Calcium 9.5 mg/dL (8.5-10.1); Carbon Dioxide 30.9 mmol/L (21.0-32.0); Chloride 104 mmol/L (98-107); Cholesterol 161 mg/dL (<=200); Estimated GFR (African America >60 (>=60 mL/min/1.73m^2); Estimated GFR (Non-African Ame >60 (>=60 mL/min/1.73m^2); Globulin 4.6 g/dL; Glucose 167 mg/dL (74-106); HDL Cholesterol 36 mg/dL (40-60); Potassium 4.3 mmol/L (3.5-5.1); Sodium 142 mmol/L (136-145); Total Protein 7.5 g/dL (6.4-8.2); Triglycerides 102 mg/dL (<=150); VLDL CHOLESTEROL 20.4 mg/dL
[2025-07-17 08:25] LABS: Prostate Specific Antigen Dx 6.01 ng/mL (<=4.00)
[2025-07-17 12:52] LABS: Lymphocytes Absolute Manual 3.02 10^3/uL (1.20-3.80); Lymphocytes Percent Manual 28.0 % (20.5-60.0); Segmented Neut Absolute Manual 5.83 10^3/uL (1.4-6.5); Segmented Neutrophils % Manual 54.0 (43.0-75.0)
[2025-07-17 12:53] LABS: Band Neutrophils Absolute 0.3 10^3/uL (0.0-0.3); Basophils Abs Manual 0.00 10^3/uL (0.00-0.10); Basophils Percent Manual 0.0 % (0.2-2.0); Eosinophils Absolute Manual 0.32 10^3/uL (0.00-0.70); Eosinophils Percent Manual 3.0 % (0.9-7.0); Monocytes Absolute Manual 1.29 10^3/uL (0.30-0.80); Monocytes Percent Manual 12.0 % (1.7-12.0)
== END 2025-07-17 07:02 | disposition home or self-care (01) ==
PROVIDERS: PCP Family Medicine; Visit Provider Family Medicine
DX: R60.0 Localized edema (principal); I10 Essential (primary) hypertension; E11.42 Type 2 diabetes mellitus with diabetic polyneuropathy; Z12.5 Encounter for screening for malignant neoplasm of prostate
CPT/HCPCS: 36415; 80053; 80061; 82043; 82570; 84153; 85007; 85027; 93971